=== PATIENT | female | born 1925 | race Caucasian/White ===

== ENCOUNTER 2016-05-29 09:14 | Inpatient (IN) | payer OTHER, MEDICARE ==
[~2016-05-29] VITALS: Ht 154.9 cm; Wt 55.0 kg
[~2016-05-29 09:14] MED LIST: ALENDRONATE SOD70 MG PO; ARTANE2 MG PO; ATIVAN0.5 MG PO; CALTRATE 600 +1 EAC1 PO; GUAIFENESI100 MG/5 M PO; MIRAPEX1 MG PO; PREDNISONE5 MG PO; PROVENTIL,2.5 MG/0.5 AEROSOL; RYTARY ER 48.71 EACH PO; SENNA S TABLET1 EACH PO; SINEMET 25-1001 EACH PO; SINEMET CR 25-1 EACH PO; SINEMET CR 50-1 EACH PO; TENORMIN25 MG PO; TYLENOL PM EX-1 EACH PO; TYLENOL REGULA325 MG PO; ZOSYN 3.3753.375 GM IV; ZYRTEC10 M3 PO
[2016-05-29 10:10] LABS: EOSINOPHIL (%) 1.1 % (0-5); EOSINOPHIL COUNT 0.1 K/uL (0-0.3); HEMATOCRIT 37.8 % (36.0-46.0); IMMATURE GRANULOCYTE (%) 0.2 % (0.0-0.7); IMMATURE GRANULOCYTE COUNT 0.2 K/uL; LYMPHOCYTE COUNT 1.4 K/uL (1.0-2.8); MCH 30.9 PG (29.0-34.0); MCHC 33.6 G/DL (30.0-36.0); MEAN PLAT.VOLUME 9.4 uM^3 (9.5-12.4); MONOCYTE (%) 4.6 % (3-12); MONOCYTE COUNT 0.4 K/uL (0-0.8); NEUTROPHIL COUNT 6.7 K/uL (1.8-6.4); PLATELET COUNT 256 K/uL (156-360); RBC DIS.WIDTH-CV 11.9 % (11.8-14.6); RBC DIS.WIDTH-SD 39.1 % (39-53); RED BLOOD COUNT 4.11 M/uL (3.80-5.20); WHITE BLOOD COUNT 8.6 K/uL (4.1-10.2)
[2016-05-29 10:16] LABS: INTER. NORMALIZED RATIO 1.1; PROTHROMBIN TIME 10.7 (9.2-11.2); PTT 26.2 (25-32)
[2016-05-29 10:17] LABS: CHLORIDE 105 mEq/L (99-109); POTASSIUM 3.5 mEq/L (3.7-5.4); SODIUM 140 mEq/L (136-147)
[2016-05-29 10:19] LABS: GLUCOSE 142 mg/dL (70-99)
[2016-05-29 10:20] LABS: ANION GAP 16 MEQ/L (2-14)
[2016-05-29 10:23] LABS: GFR ESTIMATE (CALCULATED) > 59 mL/min/
[2016-05-29 10:24] LABS: UREA NITROGEN (BUN) 12 mg/dL (9-23)
[2016-05-29 10:27] LABS: TROP-I INTERPRETATION NEGATIVE; TROPONIN-I 0.02 ng/mL (0.0-0.30)
[2016-05-29] MEDS ORDERED: TIZANIDINE HCL4 M1 PO (12:15)
[2016-05-29] MEDS ORDERED: RYTARY ER 48.71 EACH PO (12:16)
[2016-05-29] MEDS ORDERED: ACETAMINOPHEN325 M1 PO (12:17)
[2016-05-29] MEDS ORDERED: CLONAZEPAM0.5 MG PO (12:18)
[2016-05-29] MEDS ORDERED: SENNA S TABLET1 EACH PO (12:19)
[2016-05-29] MEDS ORDERED: CALCIUM 600 MG1 EACH PO (12:19)
[2016-05-29] MEDS ORDERED: FOSAMAX70 MG PO (12:20)
[2016-05-29] MEDS ORDERED: CETIRIZINE HCL10 M2 PO (12:21)
[2016-05-29] MEDS ORDERED: CARBIDOPA/LEVO1 EACH PO (12:23)
[2016-05-29 13:58] LABS: ADD MIUA? NO; BILIRUBIN NEGATIVE; BLOOD NEGATIVE; COLOR YELLOW ((YELLOW)); GLUCOSE (STRIP) NEGATIVE; KETONES 15; LEUKOCYTES NEGATIVE; NITRITE NEGATIVE; PH, URINE 6.5 (5-8); PROTEIN (STRIP) NEGATIVE; SPECIFIC GRAVITY 1.016 (1.000-1.030); UCUL ADDED? NO
[2016-05-29 15:10] VITALS: BP 133/95
[2016-05-29 19:53] LABS: TROP-I INTERPRETATION NEGATIVE
[2016-05-29 20:35] VITALS: BP 168/73
[2016-05-30 00:48] VITALS: BP 186/79
[2016-05-30 05:52] VITALS: BP 186/68
[2016-05-30 06:17] LABS: HEMATOCRIT 36.4 % (36.0-46.0); MCH 31.2 PG (29.0-34.0); MCHC 34.1 G/DL (30.0-36.0); MCV 91.7 FL (83-99); MEAN PLAT.VOLUME 9.8 uM^3 (9.5-12.4); PLATELET COUNT 208 K/uL (156-360); RBC DIS.WIDTH-CV 12.2 % (11.8-14.6); RBC DIS.WIDTH-SD 41.7 % (39-53); RED BLOOD COUNT 3.97 M/uL (3.80-5.20); WHITE BLOOD COUNT 7.9 K/uL (4.1-10.2)
[2016-05-30 07:35] LABS: ANION GAP 11 MEQ/L (2-14); CHLORIDE 106 MEQ/L (99-109); GFR ESTIMATE (CALCULATED) > 59 mL/min/; GLUCOSE 111 mg/dL (70-99); POTASSIUM 3.5 MEQ/L (3.7-5.4); SAMPLE HEMOLYSIS CHECK 0; SAMPLE ICTERIC CHECK 0; SAMPLE LIPEMIA CHECK 0; SODIUM 140 MEQ/L (136-147); UREA NITROGEN (BUN) 8 mg/dL (9-23)
[2016-05-30 07:45] VITALS: BP 144/68
[2016-05-30 08:19] LABS: MAGNESIUM 1.8 mg/dl (1.3-2.7)
[2016-05-30 11:19] VITALS: BP 140/52
[2016-05-30 16:45] VITALS: BP 169/73
[2016-05-30 20:45] VITALS: BP 134/61
[2016-05-31] VITALS (8 sets, daily range): BP systolic 136–177; BP diastolic 58–79
[2016-05-31 06:36] LABS: HEMATOCRIT 35.1 % (36.0-46.0); MCH 30.8 PG (29.0-34.0); MCHC 33.6 G/DL (30.0-36.0); MCV 91.6 FL (83-99); MEAN PLAT.VOLUME 9.8 uM^3 (9.5-12.4); PLATELET COUNT 214 K/uL (156-360); RBC DIS.WIDTH-CV 12.2 % (11.8-14.6); RBC DIS.WIDTH-SD 40.8 % (39-53); RED BLOOD COUNT 3.83 M/uL (3.80-5.20); WHITE BLOOD COUNT 7.8 K/uL (4.1-10.2)
[2016-05-31 06:58] LABS: ANION GAP 7 MEQ/L (2-14); CHLORIDE 103 MEQ/L (99-109); GFR ESTIMATE (CALCULATED) > 59 mL/min/; GLUCOSE 96 mg/dL (70-99); POTASSIUM 3.3 MEQ/L (3.7-5.4); SAMPLE HEMOLYSIS CHECK 0; SAMPLE ICTERIC CHECK 0; SAMPLE LIPEMIA CHECK 0; SODIUM 135 MEQ/L (136-147); UREA NITROGEN (BUN) 5 mg/dL (9-23)
[2016-05-31] MEDS ORDERED: ATENOLOL25 MG PO (07:41)
[2016-05-31 14:39] LABS: BASE EXCESS -8.7 mEq/L (-3 to +3); BICARBONATE 15.5 mEq/L (22-26); CARBOXY HGB 1.8 % (0-5); METHEMOGLOBIN 1.6 % (0-1.5); PO2 156 mm Hg (80-100); pH 7.35 (7.35-7.45)
[2016-05-31 14:40] LABS: COMMENTS - BLOOD GASES A+C+; DEVICE NC; O2 FLOW 2 L/MIN; PCO2 28 mm Hg (35-45); SITE LR; TOTAL RESP RATE 24 resp/min
[2016-05-31 15:04] LABS: HEMATOCRIT 37.8 % (36.0-46.0); MCH 31.1 PG (29.0-34.0); MCHC 33.9 G/DL (30.0-36.0); MEAN PLAT.VOLUME 9.6 uM^3 (9.5-12.4); PLATELET COUNT 232 K/uL (156-360); RBC DIS.WIDTH-CV 12.2 % (11.8-14.6); RBC DIS.WIDTH-SD 41.2 % (39-53); RED BLOOD COUNT 4.11 M/uL (3.80-5.20)
[2016-05-31 15:06] LABS: MAGNESIUM 1.5 mg/dl (1.3-2.7)
[2016-05-31 15:06] LABS: WHITE BLOOD COUNT 15.7 K/uL (4.1-10.2)
[2016-05-31 15:14] LABS: ANION GAP 15 MEQ/L (2-14); CHLORIDE 103 MEQ/L (99-109); GFR ESTIMATE (CALCULATED) > 59 mL/min/; GLUCOSE 97 mg/dL (70-99); POTASSIUM 3.6 MEQ/L (3.7-5.4); SAMPLE HEMOLYSIS CHECK 0; SAMPLE ICTERIC CHECK 0; SAMPLE LIPEMIA CHECK 0; SODIUM 134 MEQ/L (136-147); UREA NITROGEN (BUN) 5 mg/dL (9-23)
[2016-05-31 15:19] LABS: TROP-I INTERPRETATION NEGATIVE; TROPONIN-I 0.03 ng/mL (0.0-0.30)
[2016-05-31 20:29] LABS: HEMATOCRIT 34.9 % (36.0-46.0); MCH 30.7 PG (29.0-34.0); MCHC 34.1 G/DL (30.0-36.0); MCV 89.9 FL (83-99); MEAN PLAT.VOLUME 9.4 uM^3 (9.5-12.4); PLATELET COUNT 187 K/uL (156-360); RBC DIS.WIDTH-CV 12.1 % (11.8-14.6); RBC DIS.WIDTH-SD 39.3 % (39-53); RED BLOOD COUNT 3.88 M/uL (3.80-5.20); WHITE BLOOD COUNT 11.7 K/uL (4.1-10.2)
[2016-05-31 20:53] LABS: ANION GAP 9 MEQ/L (2-14); CHLORIDE 102 MEQ/L (99-109); GFR ESTIMATE (CALCULATED) > 59 mL/min/; GLUCOSE 92 mg/dL (70-99); POTASSIUM 3.8 MEQ/L (3.7-5.4); SAMPLE HEMOLYSIS CHECK 0; SAMPLE ICTERIC CHECK 0; SAMPLE LIPEMIA CHECK 0; SODIUM 136 MEQ/L (136-147); UREA NITROGEN (BUN) 5 mg/dL (9-23)
[2016-06-01 03:30] VITALS: BP 169/71
[2016-06-01 06:02] LABS: HEMATOCRIT 36.7 % (36.0-46.0); MCH 31.2 PG (29.0-34.0); MCHC 34.3 G/DL (30.0-36.0); MCV 90.8 FL (83-99); MEAN PLAT.VOLUME 10.3 uM^3 (9.5-12.4); PLATELET COUNT 200 K/uL (156-360); RBC DIS.WIDTH-CV 12.2 % (11.8-14.6); RBC DIS.WIDTH-SD 40.6 % (39-53); RED BLOOD COUNT 4.04 M/uL (3.80-5.20); WHITE BLOOD COUNT 9.9 K/uL (4.1-10.2)
[2016-06-01 06:26] LABS: ANION GAP 10 MEQ/L (2-14); CHLORIDE 103 MEQ/L (99-109); GFR ESTIMATE (CALCULATED) > 59 mL/min/; GLUCOSE 108 mg/dL (70-99); POTASSIUM 3.7 MEQ/L (3.7-5.4); SAMPLE HEMOLYSIS CHECK 0; SAMPLE ICTERIC CHECK 0; SAMPLE LIPEMIA CHECK 0; SODIUM 139 MEQ/L (136-147); UREA NITROGEN (BUN) 5 mg/dL (9-23)
[2016-06-01 09:00] VITALS: BP 137/64
[2016-06-01 13:22] VITALS: BP 171/69
[2016-06-01 19:44] VITALS: BP 167/71
[2016-06-01 22:18] VITALS: BP 158/70; BP 173/71
[2016-06-02 00:39] VITALS: BP 162/68
[2016-06-02 03:37] VITALS: BP 158/64
[2016-06-02 09:00] VITALS: BP 144/65
[2016-06-02 12:00] VITALS: BP 182/77
[2016-06-02 17:27] VITALS: BP 163/70
[2016-06-02 18:15] VITALS: BP 172/72
[2016-06-03 07:40] VITALS: BP 155/66
[2016-06-03 11:23] LABS: HEMATOCRIT 37.3 % (36.0-46.0); MCH 30.7 PG (29.0-34.0); MCHC 33.8 G/DL (30.0-36.0); MCV 90.8 FL (83-99); MEAN PLAT.VOLUME 9.9 uM^3 (9.5-12.4); PLATELET COUNT 214 K/uL (156-360); RBC DIS.WIDTH-CV 12.3 % (11.8-14.6); RBC DIS.WIDTH-SD 40.8 % (39-53); RED BLOOD COUNT 4.11 M/uL (3.80-5.20)
[2016-06-03 11:24] LABS: WHITE BLOOD COUNT 14.7 K/uL (4.1-10.2)
[2016-06-03 11:29] LABS: ANION GAP 10 MEQ/L (2-14); CHLORIDE 107 MEQ/L (99-109); GFR ESTIMATE (CALCULATED) > 59 mL/min/; GLUCOSE 83 mg/dL (70-99); POTASSIUM 3.5 MEQ/L (3.7-5.4); SAMPLE HEMOLYSIS CHECK 0; SAMPLE ICTERIC CHECK 0; SAMPLE LIPEMIA CHECK 0; SODIUM 142 MEQ/L (136-147); UREA NITROGEN (BUN) 20 mg/dL (9-23)
[2016-06-04 07:03] LABS: HEMATOCRIT 33.4 % (36.0-46.0); MCH 30.9 PG (29.0-34.0); MCHC 34.4 G/DL (30.0-36.0); MCV 89.8 FL (83-99); PLATELET COUNT 195 K/uL (156-360); RBC DIS.WIDTH-CV 12.4 % (11.8-14.6); RED BLOOD COUNT 3.72 M/uL (3.80-5.20)
[2016-06-04 07:35] LABS: ANION GAP 6 MEQ/L (2-14); CHLORIDE 107 MEQ/L (99-109); GFR ESTIMATE (CALCULATED) > 59 mL/min/; GLUCOSE 91 mg/dL (70-99); POTASSIUM 3.6 MEQ/L (3.7-5.4); SAMPLE HEMOLYSIS CHECK 0; SAMPLE ICTERIC CHECK 0; SAMPLE LIPEMIA CHECK 0; SODIUM 140 MEQ/L (136-147); UREA NITROGEN (BUN) 18 mg/dL (9-23)
[2016-06-04 15:00] VITALS: BP 184/77
[2016-06-04 22:42] VITALS: BP 143/77
[2016-06-05 07:36] VITALS: BP 165/73
[2016-06-05 17:34] LABS: EOSINOPHIL (%) 2.6 % (0-5); EOSINOPHIL COUNT 0.2 K/uL (0-0.3); HEMATOCRIT 34.3 % (36.0-46.0); IMMATURE GRANULOCYTE (%) 0.1 % (0.0-0.7); LYMPHOCYTE COUNT 1.1 K/uL (1.0-2.8); MCH 30.7 PG (29.0-34.0); MCHC 34.1 G/DL (30.0-36.0); MEAN PLAT.VOLUME 9.8 uM^3 (9.5-12.4); MONOCYTE (%) 9.3 % (3-12); MONOCYTE COUNT 0.7 K/uL (0-0.8); NEUTROPHIL (%) 73.6 % (45-76); NEUTROPHIL COUNT 5.7 K/uL (1.8-6.4); PLATELET COUNT 210 K/uL (156-360); RBC DIS.WIDTH-CV 12.4 % (11.8-14.6); RED BLOOD COUNT 3.81 M/uL (3.80-5.20); WHITE BLOOD COUNT 7.8 K/uL (4.1-10.2)
[2016-06-05 17:50] LABS: ANION GAP 8 MEQ/L (2-14); CHLORIDE 100 MEQ/L (99-109); GFR ESTIMATE (CALCULATED) > 59 mL/min/; GLUCOSE 104 mg/dL (70-99); POTASSIUM 3.2 MEQ/L (3.7-5.4); SAMPLE HEMOLYSIS CHECK 0; SAMPLE ICTERIC CHECK 0; SAMPLE LIPEMIA CHECK 0; SODIUM 138 MEQ/L (136-147); UREA NITROGEN (BUN) 16 mg/dL (9-23)
[2016-06-05 18:00] VITALS: BP 112/55
[2016-06-05 23:48] VITALS: BP 190/74
[2016-06-06 02:00] VITALS: BP 172/74
[2016-06-06 08:05] VITALS: BP 183/78
[2016-06-06 08:07] LABS: EOSINOPHIL (%) 3.3 % (0-5); EOSINOPHIL COUNT 0.2 K/uL (0-0.3); HEMATOCRIT 33.2 % (36.0-46.0); IMMATURE GRANULOCYTE (%) 0.2 % (0.0-0.7); LYMPHOCYTE COUNT 0.8 K/uL (1.0-2.8); MCH 30.2 PG (29.0-34.0); MCHC 33.4 G/DL (30.0-36.0); MCV 90.2 FL (83-99); MEAN PLAT.VOLUME 10.3 uM^3 (9.5-12.4); MONOCYTE (%) 8.3 % (3-12); MONOCYTE COUNT 0.5 K/uL (0-0.8); NEUTROPHIL (%) 74.2 % (45-76); NEUTROPHIL COUNT 4.1 K/uL (1.8-6.4); PLATELET COUNT 219 K/uL (156-360); RBC DIS.WIDTH-CV 12.5 % (11.8-14.6); RBC DIS.WIDTH-SD 40.9 % (39-53); RED BLOOD COUNT 3.68 M/uL (3.80-5.20); WHITE BLOOD COUNT 5.5 K/uL (4.1-10.2)
[2016-06-06 08:30] LABS: ANION GAP 8 MEQ/L (2-14); CHLORIDE 102 MEQ/L (99-109); GFR ESTIMATE (CALCULATED) > 59 mL/min/; GLUCOSE 91 mg/dL (70-99); POTASSIUM 3.3 MEQ/L (3.7-5.4); SAMPLE HEMOLYSIS CHECK 0; SAMPLE ICTERIC CHECK 0; SAMPLE LIPEMIA CHECK 0; SODIUM 139 MEQ/L (136-147); UREA NITROGEN (BUN) 13 mg/dL (9-23)
[2016-06-06] MEDS ORDERED: LISINOPRIL5 MG PO (12:58)
[2016-06-06] MEDS ORDERED: LEVETIRACETAM250 MG PO (12:58)
[2016-06-06] MEDS ORDERED: PHOSPHA250 MG PO (13:10)
[2016-06-06 13:17] VITALS: BP 117/52
== END 2016-06-06 15:05 | DRG 100 ==
LOC: EME → EDBD 09:14 → EDOF 11:56 → 4EAST 11:56 → 5EAST 06-02 18:01
PROVIDERS: Emergency Medicine; Hospitalist; Internal Medicine
DX: R56.9 Unspecified convulsions (principal); E87.2 Acidosis; G93.40 Encephalopathy, unspecified; R29.810 Facial weakness; I10 Essential (primary) hypertension; I48.0 Paroxysmal atrial fibrillation; K21.9 Gastro-esophageal reflux disease without esophagitis; G47.10 Hypersomnia, unspecified; G20 Parkinson's disease; R00.1 Bradycardia, unspecified; R09.02 Hypoxemia; I95.9 Hypotension, unspecified; R00.0 Tachycardia, unspecified; G47.00 Insomnia, unspecified; E87.6 Hypokalemia; G24.9 Dystonia, unspecified; W19.XXXA Unspecified fall, initial encounter; Y99.9 Unspecified external cause status; R26.2 Difficulty in walking, not elsewhere classified; R55 Syncope and collapse; R13.10 Dysphagia, unspecified; Z87.891 Personal history of nicotine dependence; Z66 Do not resuscitate; Z87.01 Personal history of pneumonia (recurrent); Z88.8 Allergy status to other drugs, medicaments and biological substances
CPT/HCPCS: 36600; 70450; 71010; 72125; 80048; 80048 91; 81003; 82803; 83605; 83735; 84100; 84484; 85025; 85027; 85610; 85730; 86850; 86900; 86901; 92526 GN; 92610 GN; 93005; 93306; 94799; 95819; 97530 GO; 97530 GP; 99281; 99285; J1650; J1953; J2060; J3475; J7030; J7040; J7050; S0028

== ENCOUNTER 2016-09-06 09:59 | Observation (INO) | payer OTHER, MEDICARE ==
[~2016-09-06] VITALS: Ht 152.4 cm; Wt 38.8 kg
[~2016-09-06 09:59] MED LIST changes: +ACETAMINOPHEN325 M1 PO; +ATENOLOL25 MG PO; +CALCIUM 600 MG1 EACH PO; +CARBIDOPA/LEVO1 EACH PO; +CETIRIZINE HCL10 M2 PO; +CLONAZEPAM0.5 MG PO; +FOSAMAX70 MG PO; +LEVETIRACETAM250 MG PO; +LISINOPRIL5 MG PO; +PHOSPHA250 MG PO; +TIZANIDINE HCL4 M1 PO
[2016-09-06 10:44] LABS: EOSINOPHIL COUNT 0.3 K/uL (0-0.3); IMMATURE GRANULOCYTE (%) 0.1 % (0.0-0.7); INSTRUMENT ABS NEUTROPHIL CT 5.3 K/uL; LYMPHOCYTE COUNT 1.5 K/uL (1.0-2.8); MCH 31.4 PG (29.0-34.0); MCV 95.2 FL (83-99); MONOCYTE (%) 5.7 % (3-12); MONOCYTE COUNT 0.4 K/uL (0-0.8); NEUTROPHIL (%) 70.2 % (45-76); NEUTROPHIL COUNT 5.3 K/uL (1.8-6.4); PLATELET COUNT 249 K/uL (156-360); RBC DIS.WIDTH-CV 11.9 % (11.8-14.6); RBC DIS.WIDTH-SD 41.2 % (39-53); RED BLOOD COUNT 4.62 M/uL (3.80-5.20); WHITE BLOOD COUNT 7.6 K/uL (4.1-10.2)
[2016-09-06 10:50] LABS: ADD MIUA? YES; BILIRUBIN NEGATIVE; BLOOD SMALL; COLOR STRAW ((YELLOW)); GLUCOSE (STRIP) NEGATIVE; KETONES NEGATIVE; LEUKOCYTES NEGATIVE; NITRITE NEGATIVE; PROTEIN (STRIP) NEGATIVE; SPECIFIC GRAVITY 1.009 (1.000-1.030); UROBILINOGEN 0.2 MG/DL (0.2-1.0)
[2016-09-06 10:52] LABS: BACTERIA NONE SEEN /HPF; EPITHELIAL CELLS NONE SEEN /HPF; MUCUS NONE SEEN /LPF; RED BLOOD CELLS 0-5 /HPF (0-5); UCUL ADDED? NO; WHITE BLOOD CELLS 0-5 /HPF (0-5)
[2016-09-06 10:55] LABS: CHLORIDE 104 mEq/L (99-109); POTASSIUM 4.2 mEq/L (3.7-5.4); SODIUM 141 mEq/L (136-147)
[2016-09-06 10:57] LABS: GLUCOSE 94 mg/dL (70-99)
[2016-09-06 10:59] LABS: ANION GAP 10 MEQ/L (2-14); TOTAL BILIRUBIN 0.6 mg/dL (0.0-1.0)
[2016-09-06 11:01] LABS: ALKALINE PHOSPHATASE 58 IU/L (3-129); GFR ESTIMATE (CALCULATED) > 59 mL/min/
[2016-09-06 11:02] LABS: UREA NITROGEN (BUN) 11 mg/dL (9-23)
[2016-09-06 11:10] LABS: TROP-I INTERPRETATION NEGATIVE; TROPONIN-I 0.02 ng/mL (0.0-0.30)
[2016-09-06] MEDS ORDERED: IBUPROFEN400 MG PO (15:14)
[2016-09-06] MEDS ORDERED: GABAPENTIN100 MG PO ×2 (15:15)
[2016-09-06] MEDS ORDERED: CALCIUM 600 +1 EAC3 PO (15:20)
[2016-09-06] MEDS ORDERED: CLONAZEPAM0.5 MG PO (15:20)
[2016-09-06 18:01] VITALS: BP 197/79
[2016-09-06 20:15] VITALS: BP 176/77
[2016-09-07 00:32] VITALS: BP 164/75
[2016-09-07 03:24] VITALS: BP 134/63
[2016-09-07 06:47] LABS: HEMATOCRIT 38.8 % (36.0-46.0); MCH 30.8 PG (29.0-34.0); MCV 96.3 FL (83-99); MEAN PLAT.VOLUME 9.4 uM^3 (9.5-12.4); PLATELET COUNT 205 K/uL (156-360); RBC DIS.WIDTH-CV 11.7 % (11.8-14.6); RBC DIS.WIDTH-SD 41.6 % (39-53); RED BLOOD COUNT 4.03 M/uL (3.80-5.20)
[2016-09-07 07:12] LABS: ANION GAP 7 MEQ/L (2-14); CHLORIDE 103 MEQ/L (99-109); GFR ESTIMATE (CALCULATED) > 59 mL/min/; GLUCOSE 89 mg/dL (70-99); POTASSIUM 3.7 MEQ/L (3.7-5.4); SAMPLE HEMOLYSIS CHECK 0; SAMPLE ICTERIC CHECK 0; SAMPLE LIPEMIA CHECK 0; SODIUM 140 MEQ/L (136-147); UREA NITROGEN (BUN) 13 mg/dL (9-23)
[2016-09-07 08:00] VITALS: BP 198/79
[2016-09-07 11:23] VITALS: BP 131/63
[2016-09-07] MEDS ORDERED: HYGROTON25 MG PO (12:40)
[2016-09-07] MEDS ORDERED: NORVASC5 MG PO (15:27)
[2016-09-07 15:40] VITALS: BP 133/79
== END 2016-09-07 17:27 | disposition home or self-care (01) ==
LOC: EME 09:59 → EDOF 14:56 → 5EAST 17:13
PROVIDERS: Emergency Medicine; Hospitalist
DX: G40.909 Epilepsy, unspecified, not intractable, without status epilepticus (principal); R41.82 Altered mental status, unspecified; G20 Parkinson's disease; I10 Essential (primary) hypertension; M41.9 Scoliosis, unspecified; M81.0 Age-related osteoporosis without current pathological fracture; R40.4 Transient alteration of awareness; G24.9 Dystonia, unspecified; R26.2 Difficulty in walking, not elsewhere classified; Z99.3 Dependence on wheelchair
CPT/HCPCS: 70450; 70551; 71010; 80048; 80053; 81003; 84484; 85025; 85027; 92610 GN; 93005; 99281; 99285; G0378; G8978 GP CM; G8979 CJ; G8987 CK; G8988 GO CJ; J1650; J1953; J7030; J7050; S0028

== ENCOUNTER 2016-12-06 14:02 | Emergency (ER) | payer OTHER, MEDICARE ==
[~2016-12-06] VITALS: Ht 152.4 cm; Wt 41.9 kg
[~2016-12-06 14:02] MED LIST changes: +CALCIUM 600 +1 EAC3 PO; +GABAPENTIN100 MG PO; +HYGROTON25 MG PO; +IBUPROFEN400 MG PO; +NORVASC5 MG PO
[2016-12-06 15:46] LABS: ADD MIUA? NO; BILIRUBIN NEGATIVE; BLOOD NEGATIVE; COLOR AMBER ((YELLOW)); GLUCOSE (STRIP) NEGATIVE; KETONES 5; LEUKOCYTES NEGATIVE; NITRITE NEGATIVE; PROTEIN (STRIP) NEGATIVE; SPECIFIC GRAVITY 1.025 (1.000-1.030); UCUL ADDED? NO; UROBILINOGEN 0.2 MG/DL (0.2-1.0)
[2016-12-06 17:19] VITALS: BP 155/71
== END 2016-12-06 18:23 | disposition home or self-care (01) ==
LOC: EME → EDBD 14:02 → EME 18:23
PROVIDERS: Emergency Medicine
DX: M25.551 Pain in right hip (principal); G20 Parkinson's disease; M81.0 Age-related osteoporosis without current pathological fracture; M41.9 Scoliosis, unspecified; I10 Essential (primary) hypertension; K21.9 Gastro-esophageal reflux disease without esophagitis; Z87.891 Personal history of nicotine dependence
CPT/HCPCS: 73502; 81003; 99281; 99284

== ENCOUNTER 2016-12-16 18:57 | Inpatient (IN) | payer OTHER, MEDICARE ==
[~2016-12-16] VITALS: Ht 152.4 cm; Wt 44.5 kg
[2016-12-16 19:41] LABS: MCH 31.9 PG (29.0-34.0); MCHC 33.4 G/DL (30.0-36.0); MCV 95.5 FL (83-99); MEAN PLAT.VOLUME 9.5 uM^3 (9.5-12.4); PLATELET COUNT 199 K/uL (156-360); RBC DIS.WIDTH-CV 11.9 % (11.8-14.6); RBC DIS.WIDTH-SD 41.5 % (39-53); RED BLOOD COUNT 3.35 M/uL (3.80-5.20); WHITE BLOOD COUNT 9.2 K/uL (4.1-10.2)
[2016-12-16 19:57] LABS: CHLORIDE 102 mEq/L (99-109); POTASSIUM 3.7 mEq/L (3.7-5.4); SODIUM 139 mEq/L (136-147)
[2016-12-16 19:58] LABS: GLUCOSE 102 mg/dL (70-99)
[2016-12-16 20:00] LABS: ANION GAP 9 MEQ/L (2-14)
[2016-12-16 20:02] LABS: GFR ESTIMATE (CALCULATED) > 59 mL/min/
[2016-12-16 20:03] LABS: UREA NITROGEN (BUN) 22 mg/dL (9-23)
[2016-12-16 20:23] LABS: PROTHROMBIN TIME 11.2 SEC (10.2-12.9)
[2016-12-16 20:26] LABS: PTT 28.9 SEC (25-37)
[2016-12-16] MEDS ORDERED: KEPPRA500 MG PO (21:53)
[2016-12-17 00:39] LABS: ADD MIUA? NO; BILIRUBIN NEGATIVE; BLOOD NEGATIVE; COLOR AMBER ((YELLOW)); GLUCOSE (STRIP) NEGATIVE; KETONES 5; LEUKOCYTES NEGATIVE; NITRITE NEGATIVE; PROTEIN (STRIP) NEGATIVE; UCUL ADDED? NO
[2016-12-17 00:48] LABS: SPECIFIC GRAVITY 1.065 (1.000-1.030)
[2016-12-17 02:18] LABS: POINT-OF-CARE METER ID UU14117124
[2016-12-17 07:01] LABS: HEMATOCRIT 31.7 % (36.0-46.0); MCH 32.2 PG (29.0-34.0); MCHC 33.1 G/DL (30.0-36.0); MCV 97.2 FL (83-99); MEAN PLAT.VOLUME 9.8 uM^3 (9.5-12.4); PLATELET COUNT 199 K/uL (156-360); RBC DIS.WIDTH-CV 11.9 % (11.8-14.6); RBC DIS.WIDTH-SD 41.8 % (39-53); RED BLOOD COUNT 3.26 M/uL (3.80-5.20); WHITE BLOOD COUNT 7.5 K/uL (4.1-10.2)
[2016-12-17 07:51] LABS: ANION GAP 8 MEQ/L (2-14); CHLORIDE 105 MEQ/L (99-109); GFR ESTIMATE (CALCULATED) > 59 mL/min/; GLUCOSE 105 mg/dL (70-99); POTASSIUM 3.8 MEQ/L (3.7-5.4); SAMPLE HEMOLYSIS CHECK 0; SAMPLE ICTERIC CHECK 0; SAMPLE LIPEMIA CHECK 0; SODIUM 142 MEQ/L (136-147); UREA NITROGEN (BUN) 17 mg/dL (9-23)
[2016-12-17 08:11] VITALS: BP 138/62
[2016-12-17 16:32] VITALS: BP 154/67
[2016-12-17 16:38] LABS: POINT-OF-CARE METER ID UU14117124
[2016-12-17 19:44] VITALS: BP 144/66
[2016-12-17 21:48] LABS: POINT-OF-CARE METER ID UU14188577
[2016-12-17 23:25] VITALS: BP 164/77
[2016-12-18 02:03] LABS: POINT-OF-CARE METER ID UU14188577
[2016-12-18 03:35] VITALS: BP 156/70
[2016-12-18 06:36] LABS: POINT-OF-CARE METER ID UU14188577
[2016-12-18 06:56] LABS: HEMATOCRIT 30.8 % (36.0-46.0); MCH 31.3 PG (29.0-34.0); MCHC 32.5 G/DL (30.0-36.0); MCV 96.6 FL (83-99); MEAN PLAT.VOLUME 9.5 uM^3 (9.5-12.4); PLATELET COUNT 211 K/uL (156-360); RBC DIS.WIDTH-CV 11.6 % (11.8-14.6); RBC DIS.WIDTH-SD 41.1 % (39-53); RED BLOOD COUNT 3.19 M/uL (3.80-5.20); WHITE BLOOD COUNT 7.9 K/uL (4.1-10.2)
[2016-12-18 07:22] LABS: ANION GAP 6 MEQ/L (2-14); CHLORIDE 104 MEQ/L (99-109); GFR ESTIMATE (CALCULATED) > 59 mL/min/; GLUCOSE 78 mg/dL (70-99); IRON 77 MCG/DL (35-150); SAMPLE HEMOLYSIS CHECK 0; SAMPLE ICTERIC CHECK 0; SAMPLE LIPEMIA CHECK 0; SODIUM 139 MEQ/L (136-147); UREA NITROGEN (BUN) 14 mg/dL (9-23)
[2016-12-18 07:48] VITALS: BP 136/63
[2016-12-18 08:00] LABS: FERRITIN 116 NG/ML (10-291)
[2016-12-18 11:26] VITALS: BP 153/67
[2016-12-18 15:20] VITALS: BP 143/64
[2016-12-18 19:56] VITALS: BP 128/60
[2016-12-18 23:44] VITALS: BP 136/74
[2016-12-18 23:57] LABS: POINT-OF-CARE METER ID UU14188577
[2016-12-19 03:58] VITALS: BP 146/70
[2016-12-19 06:28] LABS: POINT-OF-CARE METER ID UU14117124
[2016-12-19 06:44] LABS: ANION GAP 12 MEQ/L (2-14); CHLORIDE 100 MEQ/L (99-109); GFR ESTIMATE (CALCULATED) > 59 mL/min/; GLUCOSE 84 mg/dL (70-99); POTASSIUM 3.9 MEQ/L (3.7-5.4); SAMPLE HEMOLYSIS CHECK 0; SAMPLE ICTERIC CHECK 0; SAMPLE LIPEMIA CHECK 0; SODIUM 139 MEQ/L (136-147); UREA NITROGEN (BUN) 18 mg/dL (9-23)
[2016-12-19 06:56] LABS: HEMATOCRIT 35.7 % (36.0-46.0); MCH 31.2 PG (29.0-34.0); MCHC 33.1 G/DL (30.0-36.0); MCV 94.4 FL (83-99); MEAN PLAT.VOLUME 9.6 uM^3 (9.5-12.4); RBC DIS.WIDTH-CV 11.3 % (11.8-14.6); RBC DIS.WIDTH-SD 39.2 % (39-53); RED BLOOD COUNT 3.78 M/uL (3.80-5.20); WHITE BLOOD COUNT 11.4 K/uL (4.1-10.2)
[2016-12-19 07:18] LABS: PLATELET COUNT 297 K/uL (156-360)
[2016-12-19 08:16] VITALS: BP 135/62
[2016-12-19 11:31] VITALS: BP 150/65
[2016-12-19 12:13] LABS: POINT-OF-CARE METER ID UU14117124
[2016-12-19 16:00] VITALS: BP 134/63
[2016-12-19 18:19] LABS: ADD MIUA? YES; BILIRUBIN NEGATIVE; BLOOD SMALL; GLUCOSE (STRIP) NEGATIVE; KETONES 5; LEUKOCYTES MODERATE; NITRITE POSITIVE; PROTEIN (STRIP) NEGATIVE; SPECIFIC GRAVITY 1.016 (1.000-1.030)
[2016-12-19 18:31] LABS: COLOR DK YELLOW ((YELLOW))
[2016-12-19 18:40] LABS: POINT-OF-CARE METER ID UU14208753
[2016-12-19 18:58] LABS: AMORPHOUS PHOSPHATE CRYSTALS 2+; BACTERIA 3+ /HPF; CASTS NONE SEEN /LPF; CRYSTALS PRESENT; EPITHELIAL CELLS NONE SEEN /HPF; MUCUS NONE SEEN /LPF; RED BLOOD CELLS 0-5 /HPF (0-5); UCUL ADDED? YES; WHITE BLOOD CELLS 20-30 /HPF (0-5)
[2016-12-19 23:34] VITALS: BP 179/77
[2016-12-20 00:18] LABS: POINT-OF-CARE METER ID UU14117124
[2016-12-20 06:30] LABS: POINT-OF-CARE METER ID UU14117124
[2016-12-20 08:37] VITALS: BP 102/49
[2016-12-20 09:30] LABS: HEMATOCRIT 31.8 % (36.0-46.0); MCH 32.1 PG (29.0-34.0); MCHC 33.3 G/DL (30.0-36.0); MCV 96.4 FL (83-99); MEAN PLAT.VOLUME 9.7 uM^3 (9.5-12.4); PLATELET COUNT 238 K/uL (156-360); RBC DIS.WIDTH-CV 11.6 % (11.8-14.6); RBC DIS.WIDTH-SD 40.8 % (39-53); WHITE BLOOD COUNT 8.5 K/uL (4.1-10.2)
[2016-12-20 09:56] LABS: ANION GAP 5 MEQ/L (2-14); CHLORIDE 102 MEQ/L (99-109); GFR ESTIMATE (CALCULATED) > 59 mL/min/; GLUCOSE 126 mg/dL (70-99); POTASSIUM 3.8 MEQ/L (3.7-5.4); SAMPLE HEMOLYSIS CHECK 0; SAMPLE ICTERIC CHECK 0; SAMPLE LIPEMIA CHECK 0; SODIUM 136 MEQ/L (136-147); UREA NITROGEN (BUN) 17 mg/dL (9-23)
[2016-12-20 16:34] VITALS: BP 131/62
[2016-12-21 07:44] VITALS: BP 115/65
[2016-12-21] MEDS ORDERED: POLYETHYLENE GL17 GM PO (11:51)
[2016-12-21] MEDS ORDERED: AMITIZA24 MICROGR PO (11:51)
[2016-12-21] MEDS ORDERED: Vitamin B-12 PO (11:51)
[2016-12-21] MEDS ORDERED: SENNA LAX8.6 MG PO (11:51)
[2016-12-21] MEDS ORDERED: CEFTIN500 MG PO (12:29)
[2016-12-21 16:30] VITALS: BP 150/65
== END 2016-12-21 18:08 | DRG 536 ==
LOC: EME 18:57 → ENRESERV 23:47 → 3EAST 23:47 → EDOF 23:47 → ENRESERV 12-17 00:08 → 3EAST 12-17 00:55
PROVIDERS: Emergency Medicine; Hospitalist; Physician Assistant
DX: S72.114A Nondisplaced fracture of greater trochanter of right femur, initial encounter for closed fracture (principal); W19.XXXA Unspecified fall, initial encounter; Y92.129 Unspecified place in nursing home as the place of occurrence of the external cause; N39.0 Urinary tract infection, site not specified; B96.20 Unspecified Escherichia coli [E. coli] as the cause of diseases classified elsewhere; G20 Parkinson's disease; R29.6 Repeated falls; D51.9 Vitamin B12 deficiency anemia, unspecified; I48.0 Paroxysmal atrial fibrillation; M41.9 Scoliosis, unspecified; K62.89 Other specified diseases of anus and rectum; E04.1 Nontoxic single thyroid nodule; N75.0 Cyst of Bartholin's gland; K59.00 Constipation, unspecified; G40.909 Epilepsy, unspecified, not intractable, without status epilepticus; D64.9 Anemia, unspecified; I10 Essential (primary) hypertension; J30.9 Allergic rhinitis, unspecified; M81.0 Age-related osteoporosis without current pathological fracture; I35.1 Nonrheumatic aortic (valve) insufficiency; I35.0 Nonrheumatic aortic (valve) stenosis; R63.4 Abnormal weight loss; G89.29 Other chronic pain; M54.5 Low back pain; M19.90 Unspecified osteoarthritis, unspecified site; K21.9 Gastro-esophageal reflux disease without esophagitis; Z68.1 Body mass index [BMI] 19.9 or less, adult; Z90.710 Acquired absence of both cervix and uterus; Z87.891 Personal history of nicotine dependence
CPT/HCPCS: 70450; 71010; 73502; 74000; 76536; 76857; 80048; 81003; 82272; 82607; 82728; 82746; 82948; 83540; 83921 90; 84443; 84466; 85027; 85610; 85730; 86900; 86901; 87077; 87086; 87186; 93005; 94799; 97530 GO; J0696; J1644; J2270; J2405; J7050; J7120

== ENCOUNTER 2017-01-03 20:10 | Emergency (ER) | payer OTHER, MEDICARE ==
[~2017-01-03] VITALS: Ht 152.4 cm; Wt 38.2 kg
[~2017-01-03 20:10] MED LIST changes: +AMITIZA24 MICROGR PO; +CEFTIN500 MG PO; +KEPPRA500 MG PO; +POLYETHYLENE GL17 GM PO; +SENNA LAX8.6 MG PO; +Vitamin B-12 PO
[2017-01-03 21:49] LABS: HEMATOCRIT 35.1 % (36.0-46.0); MCH 31.3 PG (29.0-34.0); MCHC 32.8 G/DL (30.0-36.0); MCV 95.4 FL (83-99); MEAN PLAT.VOLUME 10.5 uM^3 (9.5-12.4); PLATELET COUNT 305 K/uL (156-360); RBC DIS.WIDTH-CV 12.1 % (11.8-14.6); RBC DIS.WIDTH-SD 42.4 % (39-53); RED BLOOD COUNT 3.68 M/uL (3.80-5.20); WHITE BLOOD COUNT 6.4 K/uL (4.1-10.2)
[2017-01-03 22:00] LABS: CHLORIDE 103 mEq/L (99-109); POTASSIUM 3.8 mEq/L (3.7-5.4); SODIUM 141 mEq/L (136-147)
[2017-01-03 22:01] LABS: GLUCOSE 100 mg/dL (70-99)
[2017-01-03 22:03] LABS: ANION GAP 12 MEQ/L (2-14)
[2017-01-03 22:05] LABS: GFR ESTIMATE (CALCULATED) > 59 mL/min/
[2017-01-03 22:06] LABS: UREA NITROGEN (BUN) 12 mg/dL (9-23)
[2017-01-03 22:31] LABS: ADD MIUA? NO; BILIRUBIN NEGATIVE; BLOOD NEGATIVE; COLOR YELLOW ((YELLOW)); GLUCOSE (STRIP) NEGATIVE; KETONES 5; LEUKOCYTES NEGATIVE; NITRITE NEGATIVE; PROTEIN (STRIP) NEGATIVE; UCUL ADDED? NO
[2017-01-04 01:16] VITALS: BP 188/77
== END 2017-01-04 01:20 ==
LOC: EME 20:10
PROVIDERS: Emergency Medicine
DX: G40.909 Epilepsy, unspecified, not intractable, without status epilepticus (principal); G20 Parkinson's disease; I10 Essential (primary) hypertension; Z86.73 Personal history of transient ischemic attack (TIA), and cerebral infarction without residual deficits; Z87.891 Personal history of nicotine dependence
CPT/HCPCS: 70450; 80048; 81003; 85027; 99281; 99284